=== PATIENT | female | born 1980 | race Caucasian/White ===

== ENCOUNTER 2019-04-10 19:43 | Emergency (ER) | payer OTHER ==
[2019-04-10] MEDS ORDERED: SODIUM CHLORIDE 0.9% 1,000 ML IV STA (20:22)
[2019-04-10] MEDS ORDERED: ONDANSETRON 4 MG/2 ML VIAL IVP STA (20:22)
[2019-04-10] MEDS ORDERED: KETOROLAC 30 MG/ML 1 ML VIAL IVP STA (20:32)
--- NOTE | 2019-04-10 20:32 | ED ---
Abdominal Pain HPI - General Chief Complaint: Abdominal Pain Stated Complaint: Urogenital Time Seen by Provider: 04/10/19 19:55 Source: patient Mode of arrival: ambulatory Limitations: no limitations - History of Present Illness Initial Comments: Patient is a 38-year-old female presents emergency Department with complaints of lower back discomfort as well as a fever. Patient states she has been experiencing UTI-type symptoms for the past week and a half. She did go to her doctor a week ago and was given a prescription for Bactrim however she is AL LERGIC to it. Patient states they did call her in Macrobid. She has been taking Macrobid for 2 days and feels like her symptoms are worsening. Patient developed a fever today. She is also complaining of nausea, fatigue, body aches. She has had history of kidney infections, no stones. She denies any belly pain, vomiting. She has no other complaints at this time. Upon arrival to the ER, Patient was febrile to 102.6, pulse is 106, BP 138/89, 99% on room air. - Related Data Previous Rx's Medication Instructions Recorded Fluticasone Propionate [Flonase] 2 spray EA NOSTRIL DAILY #1 pkg 10/13/13 Ibuprofen [Motrin] 600 mg PO Q6HR PRN #20 tab 10/13/13 Allergies Allergy/AdvReac Type Severity Reaction Status Date / Time ciprofloxacin [From Cipro] Allergy Dyspnea Verified 04/10/19 19:48 ciprofloxacin HCl Allergy Dyspnea Verified 04/10/19 19:48 [From Cipro] codeine Allergy Rash/Hives Verified 04/10/19 19:48 hydrocodone Allergy Dyspnea Verified 04/10/19 19:48 sulfamethoxazole Allergy Swelling Verified 04/10/19 19:49 [From Bactrim] tramadol Allergy Rash/Hives Verified 04/10/19 19:48 trimethoprim [From Bactrim] Allergy Swelling Verified 04/10/19 19:49 Review of Systems ROS Statement: Those systems with pertinent positive or pertinent negative responses have been documented in the HPI. ROS Other: All systems not noted in ROS Statement are negative. Past Medical History Past Medical History: Hypertension Additional Past Medical History / Comment(s): kidney infection History of Any Multi-Drug Resistant Organisms: None Reported Past Surgical History: Tubal Ligation Past Psychological History: No Psychological Hx Reported Smoking Status: Former smoker Past Alcohol Use History: None Reported Past Drug Use History: None Reported General Exam - General Exam Comments Initial Comments: GENERAL: Patient looks fatigued, no acute distress. HEAD: Atraumatic, normocephalic. EYES: Pupils equal round and reactive to light, extraocular movements intact, sclera anicteric, conjunctiva are normal. ENT: TMs normal, nares patent, oropharynx clear without exudates. Moist mucous membranes. NECK: Normal range of motion, supple without lymphadenopathy or JVD. LUNGS: Breath sounds clear to auscultation bilaterally and equal. No wheezes rales or rhonchi. HEART: Regular rate and rhythm without murmurs, rubs or gallops. ABDOMEN: Soft, nontender, normoactive bowel sounds. No guarding, no rebound. No masses appreciated. Mild bilateral lower back discomfort. : Deferred EXTREMITIES: Normal range of motion, no pitting or edema. No clubbing or cyanosis. NEUROLOGICAL: Normal speech, normal gait. PSYCH: Normal mood, normal affect. SKIN: Warm, Dry, normal turgor, no rashes or lesions noted. Limitations: no limitations Course Vital Signs 04/10/19 04/10/19 04/10/19 19:45 21:19 22:16 Temperature 102.6 F H 103.2 F H 101.7 F H Pulse Rate 106 H 96 92 Respiratory 18 16 15 Rate Blood Pressure 138/89 117/77 O2 Sat by Pulse 99 98 99 Oximetry Medical Decision Making - Medical Decision Making Patient is a 38-year-old female presenting with lower back pain and UTI-type symptoms for the past one week. Patient was started on Macrobid by her PCP but symptoms have increased. Patient arrives to the ER today febrile and tachycar jos. Lab work is unremarkable, lactic acid is normal, UA is normal. Liver enzymes are slightly elevated. Influenza is negative. Chest x-ray shows no acute abnormalities. Patient was given fluids, Zofran, Toradol and reports some improvement in her symptoms. Her fever did come down some. On reexamination, patient still has no belly pain. I discussed with patient that this is most likely viral in nature. Patient will continue with Motrin or Tylenol as needed for fever control. She will continue to increase fluid intake. She is in agreement with this plan and care. Patient is stable for discharge at this time. She'll follow up with her PCP if symptoms persist as well as repeat labs for her liver enzymes. Return parameters were discussed with the patient she verbalized understanding. Case discussed with Dr. Bear. - Lab Data Result diagrams: 04/10/19 20:45 04/10/19 20:45 Lab Results 04/10/19 04/10/19 04/10/19 Range/Units 20:45 20:45 20:45 WBC 6.7 (3.8-10.6) k/uL RBC 4.88 (3.80-5.40) m/uL Hgb 12.6 (11.4-16.0) gm/dL Hct 39.6 (34.0-46.0) % MCV 81.1 (80.0-100.0) fL MCH 25.8 (25.0-35.0) pg MCHC 31.8 (31.0-37.0) g/dL RDW 13.0 (11.5-15.5) % Plt Count 243 (150-450) k/uL Neutrophils % 90 % Lymphocytes % 4 % Monocytes % 2 % Eosinophils % 3 % Basophils % 1 % Neutrophils # 6.0 (1.3-7.7) k/uL Lymphocytes # 0.2 L (1.0-4.8) k/uL Monocytes # 0.2 (0-1.0) k/uL Eosinophils # 0.2 (0-0.7) k/uL Basophils # 0.0 (0-0.2) k/uL Hypochromasia Slight Sodium 136 L (137-145) mmol/L Potassium 4.1 (3.5-5.1) mmol/L Chloride 104 (98-107) mmol/L Carbon Dioxide 22 (22-30) mmol/L Anion Gap 10 mmol/L BUN 10 (7-17) mg/dL Creatinine 0.79 (0.52-1.04) mg/dL Est GFR (CKD-EPI)AfAm >90 (>60 ml/min/1.73 sqM) Est GFR (CKD-EPI)NonAf >90 (>60 ml/min/1.73 sqM) Glucose 119 H (74-99) mg/dL Plasma Lactic Acid Sanjeev 1.3 (0.7-2.0) mmol/L Calcium 9.0 (8.4-10.2) mg/dL Total Bilirubin 0.4 (0.2-1.3) mg/dL AST 156 H (14-36) U/L ALT 81 H (4-34) U/L Alkaline Phosphatase 93 (38-126) U/L Total Protein 7.3 (6.3-8.2) g/dL Albumin 4.2 (3.5-5.0) g/dL Urine Color Urine Appearance (Clear) Urine pH (5.0-8.0) Ur Specific Hessel (1.001-1.035) Urine Protein (Negative) Urine Glucose (UA) (Negative) Urine Ketones (Negative) Urine Blood (Negative) Urine Nitrite (Negative) Urine Bilirubin (Negative) Urine Urobilinogen (<2.0) mg/dL Ur Leukocyte Esterase (Negative) Urine HCG, Qual (Not Detectd) Influenza Type A RNA (Not Detectd) Influenza Type B (PCR) (Not Detectd) 04/10/19 04/10/19 04/10/19 Range/Units 20:50 20:50 21:20 WBC (3.8-10.6) k/uL RBC (3.80-5.40) m/uL Hgb (11.4-16.0) gm/dL Hct (34.0-46.0) % MCV (80.0-100.0) fL MCH (25.0-35.0) pg MCHC (31.0-37.0) g/dL RDW (11.5-15.5) % Plt Count (150-450) k/uL Neutrophils % % Lymphocytes % % Monocytes % % Eosinophils % % Basophils % % Neutrophils # (1.3-7.7) k/uL Lymphocytes # (1.0-4.8) k/uL Monocytes # (0-1.0) k/uL Eosinophils # (0-0.7) k/uL Basophils # (0-0.2) k/uL Hypochromasia Sodium (137-145) mmol/L Potassium (3.5-5.1) mmol/L Chloride (98-107) mmol/L Carbon Dioxide (22-30) mmol/L Anion Gap mmol/L BUN (7-17) mg/dL Creatinine (0.52-1.04) mg/dL Est GFR (CKD-EPI)AfAm (>60 ml/min/1.73 sqM) Est GFR (CKD-EPI)NonAf (>60 ml/min/1.73 sqM) Glucose (74-99) mg/dL Plasma Lactic Acid Sanejev (0.7-2.0) mmol/L Calcium (8.4-10.2) mg/dL Total Bilirubin (0.2-1.3) mg/dL AST (14-36) U/L ALT (4-34) U/L Alkaline Phosphatase (38-126) U/L Total Protein (6.3-8.2) g/dL Albumin (3.5-5.0) g/dL Urine Color Light Yellow Urine Appearance Clear (Clear) Urine pH 6.5 (5.0-8.0) Ur Specific Hessel 1.004 (1.001-1.035) Urine Protein Negative (Negative) Urine Glucose (UA) Negative (Negative) Urine Ketones Negative (Negative) Urine Blood Negative (Negative) Urine Nitrite Negative (Negative) Urine Bilirubin Negative (Negative) Urine Urobilinogen <2.0 (<2.0) mg/dL Ur Leukocyte Esterase Negative (Negative) Urine HCG, Qual Not Detected (Not Detectd) Influenza Type A RNA Not Detected (Not Detectd) Influenza Type B (PCR) Not Detected (Not Detectd) Disposition Clinical Impression: Fever, Viral illness Disposition: HOME SELF-CARE Condition: Stable Instructions (If sedation given, give patient instructions): Fever in Adults (E D) Additional Instructions: Please return to the Emergency Department if symptoms worsen or any other concerns. Continue with ibuprofen for fever control. Follow-up with PCP in 1-3 days if symptoms are persisting. Is patient prescribed a controlled substance at d/c from ED?: No Referrals: Tl Esqueda DO [Primary Care Provider] - 1-2 days
[2019-04-10 21:05] LABS: Basophils % (A) 1 %; Eosinophils # (A) 0.2 k/uL (0-0.7); Eosinophils % (A) 3 %; HCT 39.6 % (34.0-46.0); HGB 12.6 gm/dL (11.4-16.0); Hypochromasia Slight; Lymphocytes # (A) 0.2 k/uL (1.0-4.8); Lymphocytes % (A) 4 %; MCH 25.8 pg (25.0-35.0); MCHC 31.8 g/dL (31.0-37.0); MCV 81.1 fL (80.0-100.0); Mean Platelet Volume 7.8; Monocytes # (A) 0.2 k/uL (0-1.0); Monocytes % (A) 2 %; Neutrophils % (A) 90 %; Platelet Count 243 k/uL (150-450); RBC 4.88 m/uL (3.80-5.40); WBC 6.7 k/uL (3.8-10.6)
[2019-04-10 21:05] LABS: Appearance,Urine Clear (Clear); Bilirubin,Urine Negative (Negative); Blood,Urine Negative (Negative); Color,Urine Light Yellow; Glucose,Urine (UA) Negative (Negative); Ketones,Urine Negative (Negative); Leukocyte Esterase,Urine Negative (Negative); Nitrite,Urine Negative (Negative); PH, Urine 6.5 (5.0-8.0); Protein,Urine Negative (Negative); Specific Gravity,Urine 1.004 (1.001-1.035); Urobilinogen,Urine <2.0 mg/dL (<2.0)
[2019-04-10 21:25] LABS: ALT 81 U/L (4-34); AST 156 U/L (14-36); African American GFR (CKD) >90 (>60 ml/min/1.73 sqM); Albumin 4.2 g/dL (3.5-5.0); Alkaline Phosphatase 93 U/L (38-126); Anion Gap 10 mmol/L; Blood Urea Nitrogen 10 mg/dL (7-17); Carbon Dioxide 22 mmol/L (22-30); Chloride 104 mmol/L (98-107); Glucose 119 mg/dL (74-99); Non-African American GFR(CKD) >90 (>60 ml/min/1.73 sqM); Potassium 4.1 mmol/L (3.5-5.1); Sodium 136 mmol/L (137-145); Total Bilirubin 0.4 mg/dL (0.2-1.3); Total Protein 7.3 g/dL (6.3-8.2)
--- NOTE | 2019-04-10 21:45 | XR ---
EXAMINATION TYPE: XR chest 2V DATE OF EXAM: 04/10/2019 COMPARISON: NONE HISTORY: Cough and fever TECHNIQUE: FINDINGS: Heart and mediastinum are normal. Lungs are clear. Diaphragm is normal. Bony thorax appears normal. Pulmonary vascularity is normal. IMPRESSION: Normal chest. Normal heart.
[2019-04-10 22:18] VITALS: BP 117/77; PULSE 92; RESP 15; TEMP 101.7
[2019-04-12 18:01] LABS: EBV-EA (IgG) <0.2 AI; EBV-EBNA(IgG) >8.0 AI; EBV-VCA (IgG) >8.0 AI; EBV-VCA (IgM) <0.2 AI
[2019-04-12 18:05] LABS: Hepatitis B Core IgM Non-Reactive (Non-Reactive); Hepatitis B Surface Antigen Non-Reactive (Non-Reactive); Hepatitis C IgG Antibody Non-Reactive (Non-Reactive)
[2019-04-12 20:11] LABS: Hepatitis A Antibody IgM Non-Reactive (Non-Reactive)
== END 2019-04-10 22:42 | disposition home or self-care (01) ==
LOC: EC 19:43
DX: B34.9 Viral infection, unspecified (principal); I10 Essential (primary) hypertension; Z88.1 Allergy status to other antibiotic agents; Z88.2 Allergy status to sulfonamides; Z88.5 Allergy status to narcotic agent; Z87.891 Personal history of nicotine dependence
CPT/HCPCS: 36415; 86709; 86665 ×2; 80053; 80074; 86663; 83605; 85025; 81003; 81025; 87040; 86664; 87502; 71046; 99284; 96374; 96375; 96361; J2405; J1885; 87077; 87186

== ENCOUNTER → 2019-04-25 | Outpatient (CLI) | payer OTHER ==
[2019-04-25 23:26] LABS: ALT 42 U/L (8-44); AST 22 U/L (13-35)
== END | disposition home or self-care (01) ==
LOC: LABWHC1 17:30
PROVIDERS: ATTEND Family Medicine
DX: R94.5 Abnormal results of liver function studies (principal); R78.81 Bacteremia
CPT/HCPCS: 36415; 84450; 84460; 87040

== ENCOUNTER 2019-05-10 12:24 | Day surgery (SDC) | payer OTHER ==
[2019-05-09 12:32] VITALS: BMI 26.2
[~2019-05-10 12:24] MED LIST: LACTATED RINGERS 1,000 ML IV SCH; LIDOCAINE 1% 20 ML VIAL (10MG/ML) FOR IV START INTRADERMA PRN
[2019-05-10 13:12] VITALS: TEMP 99.3
[2019-05-10] MEDS ORDERED: GLYCOPYRROLATE 0.2 MG/ML 2 ML VIAL ONE (13:14)
[2019-05-10] MEDS ORDERED: PROPOFOL 10 MG/ML 20 ML VIAL IV ONE (13:14)
[2019-05-10] MEDS ORDERED: LIDOCAINE 1% INJ 10MG/ML (20 ML MDV) ONE (13:14)
--- NOTE | 2019-05-10 13:20 | P.GSHP ---
History of Present Illness H&P Date: 05/10/19 Chief Complaint: GERD Patient here today for upper endoscopy. Patient's complaints of heartburn. Some nausea times. Intermittent diarrhea. No significant abdominal pain. She tried Nexium [id number] for 2 weeks with mild improvement. Past Medical History Past Medical History: GERD/Reflux, Hypertension Additional Past Medical History / Comment(s): kidney infection History of Any Multi-Drug Resistant Organisms: None Reported Past Surgical History: Tubal Ligation Additional Past Surgical History / Comment(s): wisdom teeth Past Anesthesia/Blood Transfusion Reactions: No Reported Reaction Smoking Status: Former smoker Medications and Allergies Home Medications Medication Instructions Recorded Confirmed Type Losartan Potassium [Cozaar] 100 mg PO DAILY 05/09/19 05/10/19 History Allergies Allergy/AdvReac Type Severity Reaction Status Date / Time ciprofloxacin [From Cipro] Allergy Dyspnea Verified 05/10/19 12:48 ciprofloxacin HCl Allergy Dyspnea Verified 05/10/19 12:48 [From Cipro] codeine Allergy Rash/Hives Verified 05/10/19 12:48 hydrocodone Allergy Dyspnea Verified 05/10/19 12:48 nitrofurantoin Allergy Dyspnea Verified 05/10/19 12:48 [From Macrobid] sulfamethoxazole Allergy Swelling Verified 05/10/19 12:48 [From Bactrim] tramadol Allergy Rash/Hives Verified 05/10/19 12:48 trimethoprim [From Bactrim] Allergy Swelling Verified 05/10/19 12:48 Surgical - Exam Vital Signs Pulse Resp BP Pulse Ox 71 18 118/70 100 05/10/19 12:45 05/10/19 12:45 05/10/19 12:45 05/10/19 12:45 Physical exam: General: Well-developed, well-nourished HEENT: Normocephalic, sclerae nonicteric Abdomen: Nontender, nondistended Extremities: No edema Neuro: Alert and oriented Assessment and Plan (1) GERD (gastroesophageal reflux disease) Narrative/Plan: Will proceed with upper endoscopy Current Visit: Yes Status: Acute Code(s): K21.9 - GASTRO-ESOPHAGEAL REFLUX DISEASE WITHOUT ESOPHAGITIS SNOMED Code(s): 424218940
--- NOTE | 2019-05-10 13:29 | P.PCN ---
Date of Procedure: 05/10/19 Procedure(s) Performed: Preoperative Dx: GERD Postoperative Dx: Duodenitis, gastritis, small hiatal hernia Procedure: EGD with Bx Anesthesia: Sedation Endoscopist: Dr. Paredes Specimens: Duodenum, antrum Endoscopic Procedure: The patient was on the endoscopy table in the left decubitus position. The Olympus gastroscope was inserted into the oropharynx and passed under direct visualization to the region of the third portion of the duodenum. From that point the scope was slowly withdrawn inspecting all surfaces carefully. There was noted to be mild duodenitis. Biopsies were taken. No ulcers were seen. The pylorus was widely patent. The stomach was carefully inspected. There was a straight is present. A biopsy of the antrum took place to rule out H. pylori. Retroflexion revealed a small sliding hiatal hernia. The esophagus was then carefully examined. There were no neoplastic inflammatory or polypoid lesions throughout the visualized esophagus. The patient was then taken to the recovery room in stable condition per anesthesia guidelines. Recommendations: Await biopsies results. Begin antiacid therapy. Follow-up in the office if symptoms persist.
[2019-05-10 14:14] VITALS: BP 118/82; PULSE 62; RESP 16
== END 2019-05-10 14:39 | disposition home or self-care (01) ==
LOC: ORWHC2ENDO 12:24
PROVIDERS: ATTEND Surgery
DX: K29.50 Unspecified chronic gastritis without bleeding (principal); K29.80 Duodenitis without bleeding; K44.9 Diaphragmatic hernia without obstruction or gangrene; K21.0 Gastro-esophageal reflux disease with esophagitis; I10 Essential (primary) hypertension; Z87.440 Personal history of urinary (tract) infections; Z98.51 Tubal ligation status; Z98.890 Other specified postprocedural states; Z87.891 Personal history of nicotine dependence; Z79.899 Other long term (current) drug therapy; Z88.1 Allergy status to other antibiotic agents; Z88.5 Allergy status to narcotic agent; Z88.2 Allergy status to sulfonamides
CPT/HCPCS: 81025; 88305; 43239; J2001; J2704

== ENCOUNTER 2019-11-11 23:33 | Emergency (ER) | payer OTHER ==
[2019-11-11 23:39] VITALS: TEMP 98.6
[2019-11-12 00:53] LABS: Mucus,Urine Rare /hpf; RBC,Urine 1 /hpf (0-5); Squamous Epithelial Cell,Urine <1 /hpf (0-4); WBC,Urine 7 /hpf (0-5)
--- NOTE | 2019-11-12 00:59 | ED ---
General Adult HPI - General Chief complaint: Urogenital Stated complaint: Urogenital female Source: patient, RN notes reviewed Mode of arrival: ambulatory Limitations: no limitations - History of Present Illness Initial comments: 39-year-old female with a past medical history of kidney infection, hypertension presents to the emergency room for a chief complaint of dysuria. Patient has had burning with urination for the past day. Patient states she feels like she has a bladder infection which she has had in the past. Patient denies any back pain. Denies any nausea vomiting. Denies fevers or chills.Patient has no other complaints at this time including shortness of breath, chest pain, abdominal pain, nausea or vomiting, headache, or visual changes. - Related Data Home Medications Medication Instructions Recorded Confirmed Losartan Potassium [Cozaar] 100 mg PO DAILY 05/09/19 05/10/19 Previous Rx's Medication Instructions Recorded Omeprazole [PriLOSEC] 20 mg PO AC-BRKFST #90 cap 05/10/19 Sucralfate [Carafate] 1 gm PO ACHS #120 tab 05/10/19 Cephalexin [Keflex] 500 mg PO Q12HR #20 cap 11/12/19 Allergies Allergy/AdvReac Type Severity Reaction Status Date / Time ciprofloxacin [From Cipro] Allergy Dyspnea Verified 11/11/19 23:39 ciprofloxacin HCl Allergy Dyspnea Verified 11/11/19 23:39 [From Cipro] codeine Allergy Rash/Hives Verified 11/11/19 23:39 hydrocodone Allergy Dyspnea Verified 11/11/19 23:39 nitrofurantoin Allergy Dyspnea Verified 11/11/19 23:39 [From Macrobid] sulfamethoxazole Allergy Swelling Verified 11/11/19 23:39 [From Bactrim] tramadol Allergy Rash/Hives Verified 11/11/19 23:39 trimethoprim [From Bactrim] Allergy Swelling Verified 11/11/19 23:39 Review of Systems ROS Statement: Those systems with pertinent positive or pertinent negative responses have been documented in the HPI. ROS Other: All systems not noted in ROS Statement are negative. Past Medical History Past Medical History: GERD/Reflux, Hypertension Additional Past Medical History / Comment(s): kidney infection History of Any Multi-Drug Resistant Organisms: None Reported Past Surgical History: Tubal Ligation Additional Past Surgical History / Comment(s): wisdom teeth Past Anesthesia/Blood Transfusion Reactions: No Reported Reaction Past Psychological History: No Psychological Hx Reported Smoking Status: Never smoker Past Alcohol Use History: None Reported Past Drug Use History: None Reported General Exam Limitations: no limitations General appearance: alert, in no apparent distress Head exam: Present: atraumatic, normocephalic, normal inspection Eye exam: Present: normal appearance, PERRL, EOMI. Absent: scleral icterus, conjunctival injection, periorbital swelling ENT exam: Present: normal exam, mucous membranes moist Neck exam: Present: normal inspection, full ROM. Absent: tenderness, meningismus, lymphadenopathy Respiratory exam: Present: normal lung sounds bilaterally. Absent: respiratory distress, wheezes, rales, rhonchi, stridor Cardiovascular Exam: Present: regular rate, normal rhythm, normal heart sounds. Absent: systolic murmur, diastolic murmur, rubs, gallop, clicks GI/Abdominal exam: Present: soft, normal bowel sounds. Absent: distended, tenderness, guarding, rebound, rigid Back exam: Absent: CVA tenderness (R), CVA tenderness (L) Course Vital Signs 11/11/19 11/12/19 23:34 01:32 Temperature 98.6 F 98.6 F Pulse Rate 73 63 Respiratory 20 16 Rate Blood Pressure 147/87 137/98 O2 Sat by Pulse 100 100 Oximetry Medical Decision Making - Medical Decision Making patient has 7 white blood cells however is symptomatic and feels like previous bladder infections. No upper back pain or fevers. No sign of pyelonephritis. At this time patient will be treated with Keflex as she has several ALLERGIES to other medications. She believes she has had this in the past. She will return for any worsening symptoms which were discussed - Lab Data Lab Results 11/11/19 11/11/19 Range/Units 23:45 23:45 Urine Color Yellow Urine Appearance Clear (Clear) Urine pH 8.0 (5.0-8.0) Ur Specific Soso 1.000 L (1.001-1.035) Urine Protein Negative (Negative) Urine Glucose (UA) Negative (Negative) Urine Ketones Negative (Negative) Urine Blood Large (Negative) Urine Nitrite Negative (Negative) Urine Bilirubin Negative (Negative) Urine Urobilinogen <2.0 (<2.0) mg/dL Ur Leukocyte Esterase Large (Negative) Urine RBC 1 (0-5) /hpf Urine WBC 7 H (0-5) /hpf Ur Squamous Epith Cells <1 (0-4) /hpf Urine Mucus Rare H (None) /hpf Urine HCG, Qual Not Detected (Not Detectd) Disposition Clinical Impression: Urinary tract infection Disposition: HOME SELF-CARE Condition: Good Instructions (If sedation given, give patient instructions): Urinary Tract Infection in Women (ED) Prescriptions: Cephalexin [Keflex] 500 mg PO Q12HR #20 cap Is patient prescribed a controlled substance at d/c from ED?: No Referrals: Tl Esqueda DO [Primary Care Provider] - 1-2 days Time of Disposition: 01:16
[2019-11-12 01:06] LABS: Appearance,Urine Clear (Clear); Bilirubin,Urine Negative (Negative); Blood,Urine Large (Negative); Color,Urine Yellow; Glucose,Urine (UA) Negative (Negative); Ketones,Urine Negative (Negative); Protein,Urine Negative (Negative)
[2019-11-12 01:07] LABS: Leukocyte Esterase,Urine Large (Negative); Nitrite,Urine Negative (Negative); Urobilinogen,Urine <2.0 mg/dL (<2.0)
[2019-11-12] MEDS ORDERED: CEPHALEXIN 500MG STARTER PACK 4 CAP BTL PO STA (01:10)
[2019-11-12] MEDS ORDERED: PHENAZOPYRIDINE 200 MG TAB PO STA (01:10)
[2019-11-12 01:37] VITALS: BP 137/98; PULSE 63; RESP 16
== END 2019-11-12 01:33 | disposition home or self-care (01) ==
LOC: EC 23:33
DX: N39.0 Urinary tract infection, site not specified (principal); I10 Essential (primary) hypertension; Z79.899 Other long term (current) drug therapy; Z88.1 Allergy status to other antibiotic agents; Z88.5 Allergy status to narcotic agent; Z88.2 Allergy status to sulfonamides
CPT/HCPCS: 81001; 81025; 99283

== ENCOUNTER → 2022-11-21 | Outpatient (CLI) | payer OTHER ==
[2022-11-22 01:47] LABS: Basophils # (A) 0.08 X 10*3/uL (0.00-0.10); Basophils % (A) 0.9 %; Eosinophils # (A) 0.24 X 10*3/uL (0.04-0.35); Eosinophils % (A) 2.7 %; HCT 36.2 % (37.2-46.3); HGB 10.2 d/dL (12.0-15.0); Lymphocytes # (A) 2.79 X 10*3/uL (0.90-5.00); Lymphocytes % (A) 31.3 %; MCH 21.6 pg (27.0-32.0); MCHC 28.2 d/dL (32.0-37.0); MCV 76.5 FL (80.0-97.0); Mean Platelet Volume 10.6 FL (9.5-12.2); Monocytes # (A) 0.83 X 10*3/uL (0.20-1.00); Monocytes % (A) 9.3 %; NRBC Per 100 WBC 0 X 10*3/uL (0.00-0.01); Neutrophils # (A) 4.95 X 10*3/uL (1.80-7.70); Neutrophils % (A) 55.6 %; Platelet Count 411 X 10*3/uL (140-440); RBC 4.73 X 10*6/uL (4.10-5.20); WBC 8.91 X 10*3/uL (4.50-10.00)
== END | disposition home or self-care (01) ==
LOC: LABPAT 15:58
PROVIDERS: ATTEND Obstetrics & Gynecology
DX: Z01.812 Encounter for preprocedural laboratory examination (principal)
CPT/HCPCS: 85025